=== PATIENT | male | born 1995 | race Caucasian/White ===

== ENCOUNTER 2018-07-01 17:57 | Emergency (ER) | payer BC ==
[~2018-07-01] VITALS: Ht 182.9 cm; Wt 77.3 kg
[2018-07-01] MEDS ORDERED: BACTRIM DS TAB1 EACH PO (19:08)
[2018-07-01 19:21] VITALS: BP 150/89
== END 2018-07-01 19:21 | disposition home or self-care (01) ==
LOC: ED 17:57
DX: S61.217A Laceration without foreign body of left little finger without damage to nail, initial encounter (principal); S61.215A Laceration without foreign body of left ring finger without damage to nail, initial encounter; W26.8XXA Contact with other sharp object(s), not elsewhere classified, initial encounter; Y99.0 Civilian activity done for income or pay; Z23 Encounter for immunization
CPT/HCPCS: 90715

== ENCOUNTER 2019-12-13 11:27 | Emergency (ER) | payer OTHER ==
[~2019-12-13] VITALS: Ht 185.4 cm; Wt 95.5 kg
[~2019-12-13 11:27] MED LIST: BACTRIM DS TAB1 EACH PO
[2019-12-13 11:38] VITALS: BP 150/88
[2019-12-13] MEDS ORDERED: SLEEP AID25 M2 PO (11:41)
== END 2019-12-13 12:20 | disposition home or self-care (01) ==
LOC: ED 11:27
DX: S61.412A Laceration without foreign body of left hand, initial encounter (principal); W31.89XA Contact with other specified machinery, initial encounter; Y99.0 Civilian activity done for income or pay

== ENCOUNTER → 2020-05-15 | Outpatient (CLI) | payer SELFPAY ==
[~2020-05-15] MED LIST changes: +SLEEP AID25 M2 PO
== END ==
LOC: LAB 13:50
DX: R06.02 Shortness of breath (principal); R09.89 Other specified symptoms and signs involving the circulatory and respiratory systems; R11.10 Vomiting, unspecified; R51 Headache; R53.83 Other fatigue; Z20.828 Contact with and (suspected) exposure to other viral communicable diseases